=== PATIENT | male | born 1960 | race Caucasian/White ===

== ENCOUNTER 2022-06-30 15:55 | Inpatient (IN) | payer OTHER ==
[2022-06-30 16:32] VITALS: BMI 21.2
[2022-06-30] MEDS ORDERED: SODIUM CHLORIDE 1,000 ML IV STA (16:37)
[2022-06-30] MEDS ORDERED: ACETAMINOPHEN 1000 MG/100 ML BAG IVPB ONE (16:37)
[2022-06-30] MEDS ORDERED: VANCOMYCIN 1 GM in D5W (PRE-DOCKED) 1,000 MG/250 ML IVPB ONE ×2 (16:37→20:23)
[2022-06-30] MEDS ORDERED: PIPERACILLIN/TAZOB 4.5 GM 4.5 GM in DEXTROSE 5%-WATER 100 ML IVPB ONE ×2 (16:37→20:20)
[2022-06-30] MEDS ORDERED: DEXAMETHASONE SOD PHOSPHATE 4 MG/1 ML VIAL IVPUSH ONE (16:37)
[2022-06-30] MEDS ORDERED: DEXAMETHASONE SOD PHOSPHATE 10 MG/1 ML VIAL ONE (17:03)
[2022-06-30 17:12] LABS: VENOUS BASE EXCESS 5.6 mmol/L (-2-2); VENOUS O2 SATURATION 84.7 % (70-80); VENOUS PCO2 45.6 mmHg (38-52); VENOUS PH 7.444 (7.310-7.410)
[2022-06-30] MEDS ORDERED: REMDESIVIR 200 MG in SODIUM CHLORIDE 250 ML IVPB ONE (17:22)
[2022-06-30 17:27] LABS: BASO % 0.5 % (0-2.0); EOS % 0.3 % (0-4.5); HEMATOCRIT 39.9 % (35.4-49); HEMOGLOBIN 13.1 GM/dL (11.7-16.9); INR 1.03 (0.83-1.09); LYMPH % 16.3 % (8-40); MCH 29.9 pg (25.7-33.7); MCHC 32.8 g/dl (32.0-35.9); MEAN PLT VOLUME 8.5 fl (7.5-11.1); MONO % 13.8 % (3.8-10.2); NEUT % 69.1 % (42.8-82.8); PLATELET COUNT 281 10^3/uL (134-434); PROTHROMBIN TIME (PATIENT) 11.9 SEC (9.7-13.0); RBC 4.39 M/mm3 (4.00-5.60); RDW 15.5 % (11.9-15.9); WHITE BLOOD COUNT 8.7 K/mm3 (4.0-10.0)
[2022-06-30 17:30] LABS: ACTIVATED PTT 39.3 SECONDS (25.2-36.5)
[2022-06-30 17:39] LABS: BLOOD UREA NITROGEN 18.8 mg/dL (7-18)
[2022-06-30 17:42] LABS: CREATININE 0.6 mg/dL (0.55-1.3)
[2022-06-30 17:44] LABS: BILIRUBIN,TOTAL 0.3 mg/dL (0.2-1)
[2022-06-30 20:15] LABS: LACTIC ACID 2.7 mmol/L (0.4-2.0)
[2022-06-30] MEDS ORDERED: ACETAMINOPHEN 650 MG/20.3 ML ORAL SOLUTION (CUPS) GT PRN (20:24)
[2022-06-30] MEDS ORDERED: BISACODYL 10 MG SUPP.RECT PR PRN (20:27)
[2022-06-30] MEDS ORDERED: PIPERACILLIN/TAZOB 4.5 GM 4.5 GM/100 ML BAG IVPB ONE (20:44)
[2022-06-30] MEDS ORDERED: VANCOMYCIN/WATER FOR INJ (PEG) 1,000 MG/200 ML BAG IVPB ONE (20:45)
[2022-06-30] MEDS ORDERED: SCOPOLAMINE HYDROBROMIDE 1 PATCH PATCH.TD72 TD SCH (20:45)
[2022-06-30] MEDS ORDERED: SODIUM CHLORIDE 500 ML IV STA (21:28)
[2022-06-30] MEDS ORDERED: SODIUM CHLORIDE 1,000 ML IV SCH (21:30)
[2022-07-01] MEDS: VALPROATE SODIUM 250 MG/5 ML UNIT DOSE CUP GT SCH ×4 (00:03→21:34)
[2022-07-01] MEDS: levETIRAcetam 500 MG/5 ML ORAL SOLUTION (UNIT-DOSE CUPS) GT SCH ×3 (00:03→21:34)
[2022-07-01] MEDS ORDERED: VANCOMYCIN/WATER FOR INJ (PEG) 1,000 MG/200 ML BAG IVPB ONE (03:00)
[2022-07-01] MEDS: LEVOTHYROXINE NA 100 MCG TABLET (FP) GT SCH (06:01)
[2022-07-01] MEDS: ACETYLCYSTEINE 20% 200MG/ML 4 ML VIAL *FOR ORAL / INH USE ONLY IH SCH ×2 (07:40→20:12)
[2022-07-01 09:06] LABS: BASO % 0.2 % (0-2.0); HEMATOCRIT 34.9 % (35.4-49); HEMOGLOBIN 11.3 GM/dL (11.7-16.9); LYMPH % 18.7 % (8-40); MCHC 32.5 g/dl (32.0-35.9); MEAN CELL VOLUME 92.4 fl (80-96); MEAN PLT VOLUME 8.3 fl (7.5-11.1); MONO % 14.8 % (3.8-10.2); NEUT % 66.3 % (42.8-82.8); PLATELET COUNT 229 10^3/uL (134-434); RBC 3.77 M/mm3 (4.00-5.60); RDW 15.7 % (11.9-15.9); WHITE BLOOD COUNT 9.1 K/mm3 (4.0-10.0)
[2022-07-01 09:31] LABS: ALBUMIN 2.4 g/dl (3.4-5.0); BLOOD UREA NITROGEN 18.6 mg/dL (7-18); CALCIUM 8.9 mg/dL (8.5-10.1); MAGNESIUM 2.1 mg/dL (1.8-2.4)
[2022-07-01 09:34] LABS: CREATININE 0.5 mg/dL (0.55-1.3); PHOSPHOROUS 3.5 mg/dL (2.5-4.9)
[2022-07-01 09:36] LABS: BILIRUBIN,TOTAL 0.2 mg/dL (0.2-1); TOT PROT 6.4 g/dl (6.4-8.2)
[2022-07-01] MEDS: clonazePAM 0.5 MG TABLET GT SCH (10:14)
[2022-07-01] MEDS: FINASTERIDE 5 MG TABLET (FP) GT SCH (10:14)
[2022-07-01] MEDS: PANTOPRAZOLE SODIUM 40 MG VIAL IVPUSH SCH (10:15)
[2022-07-01] MEDS: ENOXAPARIN NA (PORCINE) 40 MG/0.4 ML DISP.SYRIN SQ SCH (10:15)
[2022-07-01] MEDS ORDERED: PIPERACILLIN/TAZOB 3.375 GM 3.375 GM in DEXTROSE 5%-WATER - 50 ML IVPB SCH (12:15)
[2022-07-01] MEDS: DEXAMETHASONE SOD PHOSPHATE 10 MG/1 ML VIAL IVPUSH SCH (12:21)
[2022-07-01] MEDS: LACTOBACILLUS ACIDOPHILUS 1 TABLET GT SCH (14:11)
[2022-07-01] MEDS: DOXAZOSIN MESYLATE 1 MG TABLET GT SCH (16:48)
[2022-07-01] MEDS: SCOPOLAMINE HYDROBROMIDE 1 PATCH PATCH.TD72 TD SCH (16:48)
[2022-07-01] MEDS: REMDESIVIR 100 MG in SODIUM CHLORIDE 250 ML IVPB SCH (17:16)
[2022-07-01] MEDS: PIPERACILLIN/TAZOB 3.375 GM 3.375 GM in DEXTROSE 5%-WATER - 50 ML IVPB SCH (17:16)
[2022-07-01] MEDS: SENNOSIDES 8.8 MG/5 ML BULK BOTTLE GT SCH (21:34)
[2022-07-02] MEDS: PIPERACILLIN/TAZOB 3.375 GM 3.375 GM in DEXTROSE 5%-WATER - 50 ML IVPB SCH ×3 (01:44→17:25)
[2022-07-02] MEDS: VALPROATE SODIUM 250 MG/5 ML UNIT DOSE CUP GT SCH ×3 (06:05→21:45)
[2022-07-02] MEDS: LEVOTHYROXINE NA 100 MCG TABLET (FP) GT SCH (06:05)
[2022-07-02] MEDS: ACETYLCYSTEINE 20% 200MG/ML 4 ML VIAL *FOR ORAL / INH USE ONLY IH SCH (08:00)
[2022-07-02] MEDS: FINASTERIDE 5 MG TABLET (FP) GT SCH (09:39)
[2022-07-02] MEDS: LACTOBACILLUS ACIDOPHILUS 1 TABLET GT SCH (09:39)
[2022-07-02] MEDS: clonazePAM 0.5 MG TABLET GT SCH (09:39)
[2022-07-02] MEDS: ENOXAPARIN NA (PORCINE) 40 MG/0.4 ML DISP.SYRIN SQ SCH (09:40)
[2022-07-02] MEDS: PANTOPRAZOLE SODIUM 40 MG VIAL IVPUSH SCH (09:40)
[2022-07-02] MEDS: DEXAMETHASONE SOD PHOSPHATE 10 MG/1 ML VIAL IVPUSH SCH (09:41)
[2022-07-02] MEDS: DOXAZOSIN MESYLATE 1 MG TABLET GT SCH (09:41)
[2022-07-02] MEDS: levETIRAcetam 500 MG/5 ML ORAL SOLUTION (UNIT-DOSE CUPS) GT SCH ×2 (11:48→21:46)
[2022-07-02] MEDS: REMDESIVIR 100 MG in SODIUM CHLORIDE 250 ML IVPB SCH (17:25)
[2022-07-02 18:54] VITALS: RESP 18
[2022-07-02] MEDS: SENNOSIDES 8.8 MG/5 ML BULK BOTTLE GT SCH (21:46)
[2022-07-03] MEDS: PIPERACILLIN/TAZOB 3.375 GM 3.375 GM in DEXTROSE 5%-WATER - 50 ML IVPB SCH ×3 (02:43→17:42)
[2022-07-03] MEDS: VALPROATE SODIUM 250 MG/5 ML UNIT DOSE CUP GT SCH ×3 (06:17→21:44)
[2022-07-03] MEDS: LEVOTHYROXINE NA 100 MCG TABLET (FP) GT SCH (06:17)
[2022-07-03] MEDS: levETIRAcetam 500 MG/5 ML ORAL SOLUTION (UNIT-DOSE CUPS) GT SCH ×2 (10:00→21:44)
[2022-07-03] MEDS: ENOXAPARIN NA (PORCINE) 40 MG/0.4 ML DISP.SYRIN SQ SCH (10:00)
[2022-07-03] MEDS: PANTOPRAZOLE SODIUM 40 MG VIAL IVPUSH SCH (10:00)
[2022-07-03] MEDS: FINASTERIDE 5 MG TABLET (FP) GT SCH (10:00)
[2022-07-03] MEDS: clonazePAM 0.5 MG TABLET GT SCH (10:00)
[2022-07-03] MEDS: LACTOBACILLUS ACIDOPHILUS 1 TABLET GT SCH (10:00)
[2022-07-03] MEDS: DEXAMETHASONE SOD PHOSPHATE 10 MG/1 ML VIAL IVPUSH SCH (10:01)
[2022-07-03] MEDS: DOXAZOSIN MESYLATE 1 MG TABLET GT SCH (10:01)
[2022-07-03 13:13] LABS: HEMATOCRIT 35.3 % (35.4-49); HEMOGLOBIN 11.5 GM/dL (11.7-16.9); MCH 29.8 pg (25.7-33.7); MCHC 32.5 g/dl (32.0-35.9); MEAN CELL VOLUME 91.5 fl (80-96); MEAN PLT VOLUME 8.9 fl (7.5-11.1); PLATELET COUNT 261 10^3/uL (134-434); RBC 3.86 M/mm3 (4.00-5.60); RDW 15.2 % (11.9-15.9); WHITE BLOOD COUNT 6.7 K/mm3 (4.0-10.0)
[2022-07-03 13:33] LABS: BLOOD UREA NITROGEN 19.6 mg/dL (7-18); CALCIUM 7.9 mg/dL (8.5-10.1)
[2022-07-03 13:34] LABS: ALBUMIN 2.2 g/dl (3.4-5.0)
[2022-07-03 13:36] LABS: CREATININE 0.4 mg/dL (0.55-1.3)
[2022-07-03 13:38] LABS: BILIRUBIN,TOTAL 0.2 mg/dL (0.2-1); TOT PROT 6.1 g/dl (6.4-8.2)
[2022-07-03] MEDS: REMDESIVIR 100 MG in SODIUM CHLORIDE 250 ML IVPB SCH (17:42)
[2022-07-03] MEDS: SENNOSIDES 8.8 MG/5 ML BULK BOTTLE GT SCH (21:44)
[2022-07-04] MEDS: PIPERACILLIN/TAZOB 3.375 GM 3.375 GM in DEXTROSE 5%-WATER - 50 ML IVPB SCH ×3 (02:41→17:16)
[2022-07-04] MEDS: LEVOTHYROXINE NA 100 MCG TABLET (FP) GT SCH (06:00)
[2022-07-04] MEDS: VALPROATE SODIUM 250 MG/5 ML UNIT DOSE CUP GT SCH ×3 (06:01→21:17)
[2022-07-04] MEDS: clonazePAM 0.5 MG TABLET GT SCH (11:24)
[2022-07-04] MEDS: FINASTERIDE 5 MG TABLET (FP) GT SCH (11:24)
[2022-07-04] MEDS: PANTOPRAZOLE SODIUM 40 MG VIAL IVPUSH SCH (11:24)
[2022-07-04] MEDS: LACTOBACILLUS ACIDOPHILUS 1 TABLET GT SCH (11:24)
[2022-07-04] MEDS: ENOXAPARIN NA (PORCINE) 40 MG/0.4 ML DISP.SYRIN SQ SCH (11:24)
[2022-07-04] MEDS: DEXAMETHASONE SOD PHOSPHATE 10 MG/1 ML VIAL IVPUSH SCH (11:24)
[2022-07-04] MEDS: SCOPOLAMINE HYDROBROMIDE 1 PATCH PATCH.TD72 TD SCH (11:26)
[2022-07-04] MEDS: DOXAZOSIN MESYLATE 1 MG TABLET GT SCH (11:27)
[2022-07-04 11:41] LABS: HEMATOCRIT 38.1 % (35.4-49); HEMOGLOBIN 12.3 GM/dL (11.7-16.9); MCH 29.4 pg (25.7-33.7); MCHC 32.2 g/dl (32.0-35.9); MEAN CELL VOLUME 91.3 fl (80-96); MEAN PLT VOLUME 8.5 fl (7.5-11.1); PLATELET COUNT 279 10^3/uL (134-434); RBC 4.18 M/mm3 (4.00-5.60); WHITE BLOOD COUNT 6.9 K/mm3 (4.0-10.0)
[2022-07-04 12:07] LABS: CALCIUM 8.5 mg/dL (8.5-10.1)
[2022-07-04 12:08] LABS: ALBUMIN 2.3 g/dl (3.4-5.0)
[2022-07-04 12:10] LABS: CREATININE 0.6 mg/dL (0.55-1.3)
[2022-07-04 12:11] LABS: BILIRUBIN,TOTAL 0.4 mg/dL (0.2-1); TOT PROT 6.2 g/dl (6.4-8.2)
[2022-07-04] MEDS: levETIRAcetam 500 MG/5 ML ORAL SOLUTION (UNIT-DOSE CUPS) GT SCH ×2 (13:15→21:17)
[2022-07-04] MEDS: REMDESIVIR 100 MG in SODIUM CHLORIDE 250 ML IVPB SCH (17:38)
[2022-07-04] MEDS: SENNOSIDES 8.8 MG/5 ML BULK BOTTLE GT SCH (21:17)
[2022-07-05] MEDS: PIPERACILLIN/TAZOB 3.375 GM 3.375 GM in DEXTROSE 5%-WATER - 50 ML IVPB SCH ×2 (02:05→09:51)
[2022-07-05] MEDS: LEVOTHYROXINE NA 100 MCG TABLET (FP) GT SCH (06:13)
[2022-07-05] MEDS: VALPROATE SODIUM 250 MG/5 ML UNIT DOSE CUP GT SCH ×2 (06:13→16:18)
[2022-07-05 07:14] VITALS: TEMP 97.8
[2022-07-05] MEDS: LACTOBACILLUS ACIDOPHILUS 1 TABLET GT SCH (09:52)
[2022-07-05] MEDS: FINASTERIDE 5 MG TABLET (FP) GT SCH (09:52)
[2022-07-05] MEDS: clonazePAM 0.5 MG TABLET GT SCH (09:53)
[2022-07-05] MEDS: ENOXAPARIN NA (PORCINE) 40 MG/0.4 ML DISP.SYRIN SQ SCH (09:53)
[2022-07-05] MEDS: DOXAZOSIN MESYLATE 1 MG TABLET GT SCH (09:57)
[2022-07-05] MEDS: DEXAMETHASONE SOD PHOSPHATE 10 MG/1 ML VIAL IVPUSH SCH (09:58)
[2022-07-05] MEDS: PANTOPRAZOLE SODIUM 40 MG VIAL IVPUSH SCH (10:01)
[2022-07-05 11:08] LABS: HEMATOCRIT 38.6 % (35.4-49); HEMOGLOBIN 12.4 GM/dL (11.7-16.9); MCH 29.3 pg (25.7-33.7); MCHC 32.2 g/dl (32.0-35.9); MEAN PLT VOLUME 8.4 fl (7.5-11.1); PLATELET COUNT 276 10^3/uL (134-434); RBC 4.24 M/mm3 (4.00-5.60); RDW 15.3 % (11.9-15.9); WHITE BLOOD COUNT 7.9 K/mm3 (4.0-10.0)
[2022-07-05 11:39] LABS: CALCIUM 8.6 mg/dL (8.5-10.1)
[2022-07-05 11:40] LABS: ALBUMIN 2.4 g/dl (3.4-5.0); BLOOD UREA NITROGEN 18.1 mg/dL (7-18)
[2022-07-05 11:43] LABS: CREATININE 0.4 mg/dL (0.55-1.3)
[2022-07-05 11:45] LABS: BILIRUBIN,TOTAL 0.3 mg/dL (0.2-1)
[2022-07-05 11:47] LABS: TOT PROT 6.1 g/dl (6.4-8.2)
[2022-07-05] MEDS: levETIRAcetam 500 MG/5 ML ORAL SOLUTION (UNIT-DOSE CUPS) GT SCH (12:07)
[2022-07-05 16:43] VITALS: BP 122/67
[2022-07-05 17:16] VITALS: PULSE 91
== END 2022-07-05 18:15 | DRG 871 ==
LOC: JER 15:55 → JERBED 16:38 → J5S 21:30
PROVIDERS: ADMIT Internal Medicine; ATTEND Internal Medicine
PROC: XW033E5 Introduction of Remdesivir Anti-infective into Peripheral Vein, Percutaneous Approach, New Technology Group 5 (ICD-10-PCS; principal; 2022-06-30)
DX: A41.89 Other specified sepsis (principal); J12.82 Pneumonia due to coronavirus disease 2019; U07.1 COVID-19; J96.21 Acute and chronic respiratory failure with hypoxia; J15.9 Unspecified bacterial pneumonia; J98.11 Atelectasis; E87.20 Acidosis, unspecified; E03.9 Hypothyroidism, unspecified; G40.909 Epilepsy, unspecified, not intractable, without status epilepticus; Z93.0 Tracheostomy status; G80.9 Cerebral palsy, unspecified
CPT/HCPCS: 0241U-QW; 36415; 71045-TC-FY; 80053; 82550; 82553; 82803; 83605; 83735; 84100; 84484; 85025; 85027; 85610; 85730; 86140; 86850; 86900; 86901; 87040; 87070; 87186; 87205; 93005; 93010; 99285-25; C9399; J1100

== ENCOUNTER 2022-09-25 06:00 | Emergency (ER) | payer OTHER ==
[2022-09-25 06:04] VITALS: BP 147/90; TEMP 97.1; BMI 21.1
[2022-09-25 07:11] VITALS: PULSE 108; RESP 20
== END 2022-09-25 07:30 | disposition short-term general hospital (02) ==
LOC: JER 06:00
DX: J95.09 Other tracheostomy complication (principal); Z20.822 Contact with and (suspected) exposure to COVID-19
CPT/HCPCS: 0241U-QW; 99285-25

== ENCOUNTER 2022-09-29 09:33 | Inpatient (IN) | payer OTHER ==
[2022-09-29] MEDS ORDERED: RAPID SEQUENCE INTUBATION KIT NR ONE (09:57)
[2022-09-29] MEDS ORDERED: LORazepam 2 MG/ML SDV VIAL IVPUSH ONE (10:00)
[2022-09-29] MEDS ORDERED: ROCURONIUM BROMIDE 50 MG/5 ML SYRINGE ONE (10:02)
[2022-09-29] MEDS ORDERED: MIDAZOLAM IN 0.9 % SOD.CHLORID 1 MG/1 ML PLAST..BAG ONE (10:12)
[2022-09-29] MEDS ORDERED: ALBUTEROL SO4 2.5/IPRATROPIUM 0.5 INH SOL 3 ML VIAL.NEB. NEB ONE (10:27)
[2022-09-29] MEDS ORDERED: MIDAZOLAM 100 MG in SODIUM CHLORIDE 100 ML IVPB SCH (10:30)
[2022-09-29] MEDS ORDERED: levETIRAcetam 500 MG/5 ML INJECTION VIAL IVPB ONE ×2 (10:42→10:51)
[2022-09-29] MEDS ORDERED: FENTANYL NS IVPB 500 MCG/100 ML BAG IVPB ONE (10:46)
[2022-09-29 10:51] LABS: BASO % 0.5 % (0-2.0); EOS % 0.4 % (0-4.5); HEMATOCRIT 43.1 % (35.4-49); HEMOGLOBIN 14.5 GM/dL (11.7-16.9); MCH 31.2 pg (25.7-33.7); MCHC 33.8 g/dl (32.0-35.9); MEAN CELL VOLUME 92.4 fl (80-96); MEAN PLT VOLUME 8.4 fl (7.5-11.1); MONO % 6.4 % (3.8-10.2); NEUT % 83.7 % (42.8-82.8); PLATELET COUNT 399 10^3/uL (134-434); RBC 4.66 M/mm3 (4.00-5.60); RDW 14.8 % (11.9-15.9); WHITE BLOOD COUNT 13.2 K/mm3 (4.0-10.0)
[2022-09-29] MEDS: FENTANYL IVPB 500 MCG/100 ML BAG IVPB SCH ×2 (10:51→20:11)
[2022-09-29 10:54] LABS: VENOUS BASE EXCESS -1.2 mmol/L (-2-2); VENOUS O2 SATURATION 92.8 % (70-80); VENOUS PCO2 64.2 mmHg (38-52); VENOUS PH 7.253 (7.310-7.410)
[2022-09-29 11:02] LABS: EPI CELLS 4 /uL (0-25.1); HYALINE CASTS 0 /uL (0-3.1); URINE APPEARANCE CLEAR; URINE BACTERIA 3 /uL (0-1359); URINE BILIRUBIN NEGATIVE (NEGATIVE); URINE COLOR YELLOW; URINE GLUCOSE (UA) NEGATIVE (NEGATIVE); URINE KETONE NEGATIVE (NEGATIVE); URINE LEUK ESTERASE TRACE (NEGATIVE); URINE NITRITE NEGATIVE (NEGATIVE); URINE PROTEIN NEGATIVE (NEGATIVE); URINE RBC 3 /uL (0-23.9); URINE UROBILINOGEN 0.2 mg/dL (0.2-1.0); URINE WBC 82 /uL (0-25.8)
[2022-09-29] MEDS ORDERED: MIDAZOLAM 100 MG/100 ML MG IVPB SCH (11:09)
[2022-09-29] MEDS ORDERED: MIDAZOLAM IN 0.9 % SOD.CHLORID 100 MG/100 ML PLAST..BAG IVPB SCH ×2 (11:12→12:08)
[2022-09-29 11:15] LABS: ALBUMIN 3.2 g/dl (3.4-5.0); BLOOD UREA NITROGEN 22.7 mg/dL (7-18); CALCIUM 8.9 mg/dL (8.5-10.1); MAGNESIUM 2.1 mg/dL (1.8-2.4)
[2022-09-29 11:18] LABS: CREATININE 0.6 mg/dL (0.55-1.3); PHOSPHOROUS 5.4 mg/dL (2.5-4.9)
[2022-09-29 11:19] LABS: BILIRUBIN,TOTAL 0.3 mg/dL (0.2-1); TOT PROT 8.2 g/dl (6.4-8.2)
[2022-09-29 11:25] LABS: LACTIC ACID 5.7 mmol/L (0.4-2.0)
[2022-09-29] MEDS ORDERED: LACTATED RINGERS SOLUTION 1000 ML INFUS.BAG IV ONE ×4 (11:27→16:12)
[2022-09-29] MEDS ORDERED: VANCOMYCIN/WATER 1,250 MG/250 ML BAG (RESTRICTED TO ID ONLY) IVPB ONE (11:28)
[2022-09-29] MEDS ORDERED: PIPERACILLIN/TAZOB 4.5 GM 4.5 GM in DEXTROSE 5%-WATER 100 ML IVPB ONE (11:28)
[2022-09-29] MEDS ORDERED: VANCOMYCIN/WATER 1250 MG 1,250 MG/250 ML BAG IVPB ONE (11:56)
[2022-09-29] MEDS ORDERED: PIPERACILLIN/TAZOB 4.5 GM 4.5 GM/100 ML BAG IVPB ONE (11:56)
[2022-09-29 12:05] LABS: ARTERIAL BLD GAS O2 SATURATION 98.4 % (95-98); ARTERIAL BLOOD GAS BASE EXCESS 1.1 mmol/L (-2-2); ARTERIAL BLOOD GAS PO2 114.3 mmHg (80-100); ARTERIAL BLOOD GAS pH 7.451 (7.350-7.450)
[2022-09-29 12:06] LABS: ALLENS TEST POSITIVE; VENT RATE 20
[2022-09-29] MEDS ORDERED: ACETAMINOPHEN 325 MG TABLET (FP) PO PRN (12:11)
[2022-09-29] MEDS ORDERED: ALBUTEROL SO4 2.5/IPRATROPIUM 0.5 INH SOL 3 ML VIAL.NEB. NEB PRN (12:20)
[2022-09-29] MEDS ORDERED: VALPROATE SODIUM 500 MG/5 ML VIAL IVPB SCH (14:00)
[2022-09-29] MEDS ORDERED: DOCUSATE NA 100 MG/10 ML UNIT-DOSE CUPS PO PRN (14:06)
[2022-09-29] MEDS: MIDAZOLAM IN 0.9 % SOD.CHLORID 100 MG/100 ML PLAST..BAG IVPB SCH (14:10)
[2022-09-29] MEDS: ENOXAPARIN NA (PORCINE) 40 MG/0.4 ML DISP.SYRIN SQ SCH (14:12)
[2022-09-29] MEDS: VALPROATE SODIUM INJECTION 500 MG in SODIUM CHLORIDE 100 ML IVPB SCH ×2 (14:31→21:53)
[2022-09-29 16:06] LABS: LACTIC ACID 5.4 mmol/L (0.4-2.0)
[2022-09-29] MEDS: MIDODRINE HCL 5 MG TABLET PO SCH (17:38)
[2022-09-29] MEDS: PIPERACILLIN/TAZOB 4.5 GM 4.5 GM in DEXTROSE 5%-WATER 100 ML IVPB SCH (17:38)
[2022-09-29] MEDS ORDERED: PIPERACILLIN/TAZOB 4.5 GM 4.5 GM in DEXTROSE 5%-WATER 100 ML IVPB SCH (18:00)
[2022-09-29] MEDS: DEXAMETHASONE SOD PHOSPHATE 10 MG/1 ML VIAL IVPUSH SCH (20:11)
[2022-09-29] MEDS ORDERED: TRIPLE LUMEN FLUSH 4 ML ML IVPUSH PRN (20:45)
[2022-09-29] MEDS: levETIRAcetam 500 MG/5 ML INJECTION VIAL IVPB SCH (21:51)
[2022-09-29] MEDS: CHLORHEXIDINE GLUCONATE 4% CLEANSER FOR DECOLONIZATION TP SCH (21:52)
[2022-09-29] MEDS: SENNOSIDES 8.6MG TABLET (FP) PO SCH (21:52)
[2022-09-29] MEDS: NOREPINEPHRINE BITARTRATE/D5W 8 MG/250 ML BAG IVPB SCH (21:54)
[2022-09-29] MEDS: MUPIROCIN 2% TOPICAL OINTMENT FOR DECOLONIZATION NS SCH (21:54)
[2022-09-29 22:03] LABS: LACTIC ACID 3.1 mmol/L (0.4-2.0)
[2022-09-30] MEDS ORDERED: PIPERACILLIN/TAZOBACTAM 4.5 GM VIAL IVPB ONE (01:37)
[2022-09-30] MEDS: PIPERACILLIN/TAZOB 4.5 GM 4.5 GM in DEXTROSE 5%-WATER 100 ML IVPB SCH ×2 (01:40→09:05)
[2022-09-30 06:10] LABS: ARTERIAL BLD GAS O2 SATURATION 98.9 % (95-98); ARTERIAL BLOOD GAS BASE EXCESS 1.3 mmol/L (-2-2); ARTERIAL BLOOD GAS PO2 136.6 mmHg (80-100); ARTERIAL BLOOD GAS pH 7.494 (7.350-7.450)
[2022-09-30 06:17] LABS: ALLENS TEST POSITIVE
[2022-09-30 06:18] LABS: VENT MODE A/C; VENT RATE 18
[2022-09-30] MEDS: VALPROATE SODIUM INJECTION 500 MG in SODIUM CHLORIDE 100 ML IVPB SCH ×3 (06:54→21:09)
[2022-09-30] MEDS: FENTANYL IVPB 500 MCG/100 ML BAG IVPB SCH ×2 (06:55→16:16)
[2022-09-30 08:37] LABS: INR 1.01 (0.83-1.09); PROTHROMBIN TIME (PATIENT) 11.7 SEC (9.7-13.0)
[2022-09-30 08:44] LABS: BASO % 0.1 % (0-2.0); HEMATOCRIT 34.8 % (35.4-49); HEMOGLOBIN 12.4 GM/dL (11.7-16.9); LYMPH % 10.4 % (8-40); MCH 32.3 pg (25.7-33.7); MCHC 35.6 g/dl (32.0-35.9); MEAN CELL VOLUME 90.6 fl (80-96); MEAN PLT VOLUME 9.1 fl (7.5-11.1); MONO % 5.9 % (3.8-10.2); NEUT % 83.6 % (42.8-82.8); PLATELET COUNT 292 10^3/uL (134-434); RBC 3.85 M/mm3 (4.00-5.60); RDW 14.7 % (11.9-15.9); WHITE BLOOD COUNT 8.4 K/mm3 (4.0-10.0)
[2022-09-30 08:46] LABS: LACTIC ACID 3.2 mmol/L (0.4-2.0)
[2022-09-30 08:53] LABS: CALCIUM 8.6 mg/dL (8.5-10.1)
[2022-09-30 08:54] LABS: BLOOD UREA NITROGEN 18.7 mg/dL (7-18); MAGNESIUM 1.8 mg/dL (1.8-2.4)
[2022-09-30 08:58] LABS: CREATININE 0.6 mg/dL (0.55-1.3); PHOSPHOROUS 4.1 mg/dL (2.5-4.9)
[2022-09-30] MEDS: MIDODRINE HCL 5 MG TABLET PO SCH ×3 (09:05→18:05)
[2022-09-30] MEDS: levETIRAcetam 500 MG/5 ML INJECTION VIAL IVPB SCH ×2 (09:05→21:08)
[2022-09-30] MEDS: LEVOTHYROXINE SODIUM 100 MCG 5 ML VIAL IVPUSH SCH (09:06)
[2022-09-30] MEDS: ENOXAPARIN NA (PORCINE) 40 MG/0.4 ML DISP.SYRIN SQ SCH (09:06)
[2022-09-30] MEDS: MIDAZOLAM IN 0.9 % SOD.CHLORID 100 MG/100 ML PLAST..BAG IVPB SCH (09:25)
[2022-09-30] MEDS: MUPIROCIN 2% TOPICAL OINTMENT FOR DECOLONIZATION NS SCH ×2 (14:28→22:58)
[2022-09-30] MEDS: PIPERACILLIN/TAZOB 3.375 GM 3.375 GM in DEXTROSE 5%-WATER - 50 ML IVPB SCH (18:05)
[2022-09-30] MEDS: DEXAMETHASONE SOD PHOSPHATE 10 MG/1 ML VIAL IVPUSH SCH (18:05)
[2022-09-30] MEDS ORDERED: REMDESIVIR 200 MG in SODIUM CHLORIDE 250 ML IVPB ONE (19:30)
[2022-09-30] MEDS: SENNOSIDES 8.6MG TABLET (FP) PO SCH (21:08)
[2022-09-30] MEDS: CHLORHEXIDINE GLUCONATE 4% CLEANSER FOR DECOLONIZATION TP SCH (21:09)
[2022-09-30] MEDS: NOREPINEPHRINE BITARTRATE/D5W 8 MG/250 ML BAG IVPB SCH (21:09)
[2022-10-01] MEDS: PIPERACILLIN/TAZOB 3.375 GM 3.375 GM in DEXTROSE 5%-WATER - 50 ML IVPB SCH ×3 (01:57→17:26)
[2022-10-01] MEDS: FENTANYL IVPB 500 MCG/100 ML BAG IVPB SCH (04:03)
[2022-10-01] MEDS: VALPROATE SODIUM INJECTION 500 MG in SODIUM CHLORIDE 100 ML IVPB SCH ×3 (05:23→21:38)
[2022-10-01 06:39] LABS: ARTERIAL BLD GAS O2 SATURATION 94.4 % (95-98); ARTERIAL BLOOD GAS BASE EXCESS 2.8 mmol/L (-2-2); ARTERIAL BLOOD GAS PO2 64.9 mmHg (80-100); ARTERIAL BLOOD GAS pH 7.496 (7.350-7.450)
[2022-10-01 07:00] LABS: VENT MODE V-A/C; VENT RATE 18
[2022-10-01 07:48] LABS: HEMATOCRIT 34.9 % (35.4-49); HEMOGLOBIN 12.3 GM/dL (11.7-16.9); MCH 32.1 pg (25.7-33.7); MCHC 35.2 g/dl (32.0-35.9); MEAN CELL VOLUME 91.2 fl (80-96); MEAN PLT VOLUME 8.6 fl (7.5-11.1); PLATELET COUNT 279 10^3/uL (134-434); RBC 3.83 M/mm3 (4.00-5.60); RDW 14.3 % (11.9-15.9); WHITE BLOOD COUNT 6.4 K/mm3 (4.0-10.0)
[2022-10-01 08:06] LABS: BLOOD UREA NITROGEN 19.4 mg/dL (7-18); CALCIUM 8.5 mg/dL (8.5-10.1); MAGNESIUM 1.9 mg/dL (1.8-2.4)
[2022-10-01 08:09] LABS: CREATININE 0.6 mg/dL (0.55-1.3); PHOSPHOROUS 3.2 mg/dL (2.5-4.9)
[2022-10-01 08:14] LABS: INR 0.97 (0.83-1.09); PROTHROMBIN TIME (PATIENT) 11.2 SEC (9.7-13.0)
[2022-10-01 08:16] LABS: ACTIVATED PTT 32.8 SECONDS (25.2-36.5)
[2022-10-01] MEDS: MIDODRINE HCL 5 MG TABLET PO SCH ×3 (09:34→17:26)
[2022-10-01] MEDS: LEVOTHYROXINE SODIUM 100 MCG 5 ML VIAL IVPUSH SCH (09:35)
[2022-10-01] MEDS: levETIRAcetam 500 MG/5 ML INJECTION VIAL IVPB SCH ×2 (09:35→21:40)
[2022-10-01] MEDS: REMDESIVIR 100 MG in SODIUM CHLORIDE 250 ML IVPB SCH (09:36)
[2022-10-01] MEDS: MUPIROCIN 2% TOPICAL OINTMENT FOR DECOLONIZATION NS SCH ×2 (09:36→21:41)
[2022-10-01] MEDS: ENOXAPARIN NA (PORCINE) 40 MG/0.4 ML DISP.SYRIN SQ SCH (09:37)
[2022-10-01] MEDS: DEXAMETHASONE SOD PHOSPHATE 10 MG/1 ML VIAL IVPUSH SCH (17:26)
[2022-10-01] MEDS: NOREPINEPHRINE BITARTRATE/D5W 8 MG/250 ML BAG IVPB SCH (21:40)
[2022-10-01] MEDS: CHLORHEXIDINE GLUCONATE 4% CLEANSER FOR DECOLONIZATION TP SCH (21:40)
[2022-10-01] MEDS: SENNOSIDES 8.6MG TABLET (FP) PO SCH (21:40)
[2022-10-02] MEDS: PIPERACILLIN/TAZOB 3.375 GM 3.375 GM in DEXTROSE 5%-WATER - 50 ML IVPB SCH ×3 (01:54→17:37)
[2022-10-02] MEDS: VALPROATE SODIUM INJECTION 500 MG in SODIUM CHLORIDE 100 ML IVPB SCH ×2 (06:18→13:53)
[2022-10-02 07:12] LABS: BASO % 0.1 % (0-2.0); HEMOGLOBIN 11.8 GM/dL (11.7-16.9); LYMPH % 9.8 % (8-40); MCH 31.8 pg (25.7-33.7); MCHC 34.6 g/dl (32.0-35.9); MEAN CELL VOLUME 92.1 fl (80-96); MEAN PLT VOLUME 8.4 fl (7.5-11.1); MONO % 9.2 % (3.8-10.2); NEUT % 80.9 % (42.8-82.8); PLATELET COUNT 270 10^3/uL (134-434); RDW 14.6 % (11.9-15.9)
[2022-10-02 07:41] LABS: CALCIUM 8.5 mg/dL (8.5-10.1)
[2022-10-02 07:43] LABS: CREATININE 0.5 mg/dL (0.55-1.3)
[2022-10-02 07:44] LABS: BILIRUBIN,TOTAL 0.2 mg/dL (0.2-1)
[2022-10-02 07:47] LABS: ALBUMIN 2.4 g/dl (3.4-5.0); TOT PROT 6.1 g/dl (6.4-8.2)
[2022-10-02] MEDS: MUPIROCIN 2% TOPICAL OINTMENT FOR DECOLONIZATION NS SCH (09:41)
[2022-10-02] MEDS: levETIRAcetam 500 MG/5 ML INJECTION VIAL IVPB SCH ×2 (09:41→23:29)
[2022-10-02] MEDS: ENOXAPARIN NA (PORCINE) 40 MG/0.4 ML DISP.SYRIN SQ SCH (09:41)
[2022-10-02] MEDS: DEXAMETHASONE SOD PHOSPHATE 10 MG/1 ML VIAL IVPUSH SCH (09:41)
[2022-10-02] MEDS: LEVOTHYROXINE SODIUM 100 MCG 5 ML VIAL IVPUSH SCH (09:42)
[2022-10-02] MEDS: REMDESIVIR 100 MG in SODIUM CHLORIDE 250 ML IVPB SCH (09:42)
[2022-10-02] MEDS: MIDODRINE HCL 5 MG TABLET PO SCH ×3 (09:42→17:37)
[2022-10-02] MEDS: FENTANYL IVPB 500 MCG/100 ML BAG IVPB SCH (09:43)
[2022-10-02] MEDS ORDERED: SODIUM CHLORIDE 0.9% 500 ML INFUS.BAG IV ONE (14:28)
[2022-10-02] MEDS ORDERED: DEXTROSE 50%-WATER - 25 GM/50 ML VIAL IVPUSH PRN (19:28)
[2022-10-02] MEDS: MELATONIN 1 MG TABLET PO SCH (23:29)
[2022-10-02] MEDS: SENNOSIDES 8.6MG TABLET (FP) PO SCH (23:29)
[2022-10-03] MEDS: MUPIROCIN 2% TOPICAL OINTMENT FOR DECOLONIZATION NS SCH (00:32)
[2022-10-03] MEDS: CHLORHEXIDINE GLUCONATE 4% CLEANSER FOR DECOLONIZATION TP SCH (00:32)
[2022-10-03] MEDS: VALPROATE SODIUM INJECTION 500 MG in SODIUM CHLORIDE 100 ML IVPB SCH ×5 (00:52→22:02)
[2022-10-03] MEDS: PIPERACILLIN/TAZOB 3.375 GM 3.375 GM in DEXTROSE 5%-WATER - 50 ML IVPB SCH ×3 (02:26→17:08)
[2022-10-03 07:53] LABS: BASO % 0.2 % (0-2.0); EOS % 0.1 % (0-4.5); HEMATOCRIT 33.5 % (35.4-49); HEMOGLOBIN 11.6 GM/dL (11.7-16.9); LYMPH % 37.7 % (8-40); MCHC 34.7 g/dl (32.0-35.9); MEAN CELL VOLUME 92.2 fl (80-96); MEAN PLT VOLUME 8.4 fl (7.5-11.1); MONO % 10.9 % (3.8-10.2); NEUT % 51.1 % (42.8-82.8); PLATELET COUNT 278 10^3/uL (134-434); RBC 3.63 M/mm3 (4.00-5.60); RDW 14.7 % (11.9-15.9); WHITE BLOOD COUNT 7.7 K/mm3 (4.0-10.0)
[2022-10-03 08:17] LABS: BLOOD UREA NITROGEN 21.4 mg/dL (7-18); CALCIUM 8.4 mg/dL (8.5-10.1)
[2022-10-03 08:18] LABS: ALBUMIN 2.5 g/dl (3.4-5.0); MAGNESIUM 2.1 mg/dL (1.8-2.4)
[2022-10-03 08:21] LABS: CREATININE 0.5 mg/dL (0.55-1.3); PHOSPHOROUS 2.9 mg/dL (2.5-4.9)
[2022-10-03 08:22] LABS: BILIRUBIN,TOTAL 0.2 mg/dL (0.2-1)
[2022-10-03] MEDS: MIDODRINE HCL 5 MG TABLET PO SCH ×3 (10:08→17:08)
[2022-10-03] MEDS: ENOXAPARIN NA (PORCINE) 40 MG/0.4 ML DISP.SYRIN SQ SCH (10:08)
[2022-10-03] MEDS: levETIRAcetam 500 MG/5 ML INJECTION VIAL IVPB SCH ×2 (10:09→21:59)
[2022-10-03] MEDS: LEVOTHYROXINE SODIUM 100 MCG 5 ML VIAL IVPUSH SCH (10:09)
[2022-10-03 12:39] VITALS: BMI 22.9
[2022-10-03] MEDS: ALBUTEROL SO4 2.5/IPRATROPIUM 0.5 INH SOL 3 ML VIAL.NEB. NEB SCH ×2 (15:18→20:00)
[2022-10-03] MEDS ORDERED: ALBUTEROL SO4 2.5/IPRATROPIUM 0.5 INH SOL 3 ML VIAL.NEB. NEB PRN (20:02)
[2022-10-03] MEDS ORDERED: ACETAMINOPHEN 325 MG TABLET (FP) PO PRN (20:02)
[2022-10-03] MEDS ORDERED: DOCUSATE NA 100 MG/10 ML UNIT-DOSE CUPS PO PRN (20:02)
[2022-10-03] MEDS: MELATONIN 1 MG TABLET PO SCH (22:00)
[2022-10-03] MEDS: SENNOSIDES 8.6MG TABLET (FP) PO SCH (22:01)
[2022-10-04] MEDS: PIPERACILLIN/TAZOB 3.375 GM 3.375 GM in DEXTROSE 5%-WATER - 50 ML IVPB SCH ×3 (01:15→17:44)
[2022-10-04] MEDS: VALPROATE SODIUM INJECTION 500 MG in SODIUM CHLORIDE 100 ML IVPB SCH ×5 (06:06→22:52)
[2022-10-04] MEDS: LEVOTHYROXINE NA 75 MCG TABLET (FP) PO SCH (06:06)
[2022-10-04] MEDS: ALBUTEROL SO4 2.5/IPRATROPIUM 0.5 INH SOL 3 ML VIAL.NEB. NEB SCH ×4 (07:43→20:05)
[2022-10-04 08:52] LABS: BASO % 0.4 % (0-2.0); EOS % 0.5 % (0-4.5); HEMATOCRIT 39.9 % (35.4-49); HEMOGLOBIN 14.1 GM/dL (11.7-16.9); LYMPH % 25.4 % (8-40); MCH 32.4 pg (25.7-33.7); MCHC 35.4 g/dl (32.0-35.9); MEAN CELL VOLUME 91.5 fl (80-96); MEAN PLT VOLUME 8.6 fl (7.5-11.1); MONO % 10.8 % (3.8-10.2); NEUT % 62.9 % (42.8-82.8); PLATELET COUNT 306 10^3/uL (134-434); RBC 4.36 M/mm3 (4.00-5.60); WHITE BLOOD COUNT 10.1 K/mm3 (4.0-10.0)
[2022-10-04 09:22] LABS: ALBUMIN 2.9 g/dl (3.4-5.0); BLOOD UREA NITROGEN 13.9 mg/dL (7-18); MAGNESIUM 2.1 mg/dL (1.8-2.4)
[2022-10-04 09:25] LABS: BILIRUBIN,TOTAL 0.2 mg/dL (0.2-1); CREATININE 0.5 mg/dL (0.55-1.3); PHOSPHOROUS 3.2 mg/dL (2.5-4.9)
[2022-10-04 09:26] LABS: TOT PROT 7.1 g/dl (6.4-8.2)
[2022-10-04] MEDS: levETIRAcetam 500 MG/5 ML INJECTION VIAL IVPB SCH ×2 (11:26→22:51)
[2022-10-04] MEDS: ENOXAPARIN NA (PORCINE) 40 MG/0.4 ML DISP.SYRIN SQ SCH (11:26)
[2022-10-04] MEDS: MIDODRINE HCL 5 MG TABLET PO SCH ×3 (11:27→17:45)
[2022-10-04] MEDS: SENNOSIDES 8.6MG TABLET (FP) PO SCH (22:51)
[2022-10-04] MEDS: MELATONIN 1 MG TABLET PO SCH (22:51)
[2022-10-05] MEDS: PIPERACILLIN/TAZOB 3.375 GM 3.375 GM in DEXTROSE 5%-WATER - 50 ML IVPB SCH ×3 (02:17→17:12)
[2022-10-05] MEDS: VALPROATE SODIUM INJECTION 500 MG in SODIUM CHLORIDE 100 ML IVPB SCH ×3 (06:41→21:41)
[2022-10-05] MEDS: LEVOTHYROXINE NA 75 MCG TABLET (FP) PO SCH (06:41)
[2022-10-05] MEDS: ALBUTEROL SO4 2.5/IPRATROPIUM 0.5 INH SOL 3 ML VIAL.NEB. NEB SCH ×4 (07:58→20:00)
[2022-10-05] MEDS: ENOXAPARIN NA (PORCINE) 40 MG/0.4 ML DISP.SYRIN SQ SCH (10:09)
[2022-10-05] MEDS: levETIRAcetam 500 MG/5 ML INJECTION VIAL IVPB SCH ×2 (10:10→21:41)
[2022-10-05] MEDS: MIDODRINE HCL 5 MG TABLET PO SCH ×3 (10:12→17:13)
[2022-10-05] MEDS: SENNOSIDES 8.6MG TABLET (FP) PO SCH (21:40)
[2022-10-05] MEDS: MELATONIN 1 MG TABLET PO SCH (21:40)
[2022-10-06] MEDS: LEVOTHYROXINE NA 75 MCG TABLET (FP) PO SCH (06:58)
[2022-10-06] MEDS: VALPROATE SODIUM INJECTION 500 MG in SODIUM CHLORIDE 100 ML IVPB SCH ×3 (06:59→23:09)
[2022-10-06] MEDS: ALBUTEROL SO4 2.5/IPRATROPIUM 0.5 INH SOL 3 ML VIAL.NEB. NEB SCH ×4 (07:30→21:20)
[2022-10-06] MEDS: ENOXAPARIN NA (PORCINE) 40 MG/0.4 ML DISP.SYRIN SQ SCH (09:58)
[2022-10-06] MEDS: levETIRAcetam 500 MG/5 ML INJECTION VIAL IVPB SCH ×2 (09:58→22:28)
[2022-10-06] MEDS: AMOX TR/POT CLAV 500MG/125MG TABLETS (FP) PO SCH ×2 (09:59→17:35)
[2022-10-06] MEDS: MIDODRINE HCL 5 MG TABLET PO SCH ×3 (10:00→17:35)
[2022-10-06] MEDS: SODIUM CHLORIDE 1,000 ML IV SCH (15:19)
[2022-10-06] MEDS: ACYCLOVIR INJECTION 600 MG in DEXTROSE 5%-WATER - 100 ML IVPB SCH ×2 (15:20→18:12)
[2022-10-06] MEDS: MELATONIN 1 MG TABLET PO SCH (22:29)
[2022-10-06] MEDS: SENNOSIDES 8.6MG TABLET (FP) PO SCH (22:29)
[2022-10-07] MEDS: ACYCLOVIR INJECTION 600 MG in DEXTROSE 5%-WATER - 100 ML IVPB SCH ×3 (02:19→18:26)
[2022-10-07] MEDS: VALPROATE SODIUM INJECTION 500 MG in SODIUM CHLORIDE 100 ML IVPB SCH ×3 (05:17→22:46)
[2022-10-07] MEDS: LEVOTHYROXINE NA 75 MCG TABLET (FP) PO SCH (06:04)
[2022-10-07] MEDS: ALBUTEROL SO4 2.5/IPRATROPIUM 0.5 INH SOL 3 ML VIAL.NEB. NEB SCH ×4 (07:40→21:19)
[2022-10-07] MEDS: AMOX TR/POT CLAV 500MG/125MG TABLETS (FP) PO SCH ×2 (08:20→17:24)
[2022-10-07] MEDS: MIDODRINE HCL 5 MG TABLET PO SCH ×3 (09:13→17:24)
[2022-10-07] MEDS: levETIRAcetam 500 MG/5 ML INJECTION VIAL IVPB SCH ×2 (09:44→22:46)
[2022-10-07] MEDS: ENOXAPARIN NA (PORCINE) 40 MG/0.4 ML DISP.SYRIN SQ SCH (09:44)
[2022-10-07 09:50] LABS: HEMATOCRIT 38.7 % (35.4-49); HEMOGLOBIN 13.2 GM/dL (11.7-16.9); MCH 31.5 pg (25.7-33.7); MEAN CELL VOLUME 92.6 fl (80-96); MEAN PLT VOLUME 8.1 fl (7.5-11.1); PLATELET COUNT 381 10^3/uL (134-434); RBC 4.18 M/mm3 (4.00-5.60); WHITE BLOOD COUNT 13.4 K/mm3 (4.0-10.0)
[2022-10-07 10:57] LABS: ALBUMIN 2.7 g/dl (3.4-5.0); BILIRUBIN,TOTAL 0.2 mg/dL (0.2-1); BLOOD UREA NITROGEN 15.2 mg/dL (7-18); CALCIUM 9.2 mg/dL (8.5-10.1); CREATININE 0.6 mg/dL (0.55-1.3); TOT PROT 6.6 g/dl (6.4-8.2)
[2022-10-07 11:33] LABS: ANISOCYTOSIS 0; HELMET CELLS 0; HOWELL-JOLLY BODIES 0; MACROCYTOSIS 0; OVALOCYTE 0; ROULEAU 0; SICKELED CELLS 0; TARGET CELLS 0; TEAR DROP CELLS 0; TOXIC GRANULATION 0
[2022-10-07] MEDS: SODIUM CHLORIDE 1,000 ML IV SCH (14:35)
[2022-10-07] MEDS: SENNOSIDES 8.6MG TABLET (FP) PO SCH (22:46)
[2022-10-07] MEDS: MELATONIN 1 MG TABLET PO SCH (22:46)
[2022-10-08] MEDS: ACYCLOVIR INJECTION 600 MG in DEXTROSE 5%-WATER - 100 ML IVPB SCH ×3 (02:42→18:23)
[2022-10-08] MEDS: SODIUM CHLORIDE 1,000 ML IV SCH ×2 (05:31→15:32)
[2022-10-08] MEDS: LEVOTHYROXINE NA 75 MCG TABLET (FP) PO SCH (06:41)
[2022-10-08] MEDS: VALPROATE SODIUM INJECTION 500 MG in SODIUM CHLORIDE 100 ML IVPB SCH ×2 (06:41→15:32)
[2022-10-08] MEDS: ALBUTEROL SO4 2.5/IPRATROPIUM 0.5 INH SOL 3 ML VIAL.NEB. NEB SCH ×4 (07:47→20:34)
[2022-10-08] MEDS: AMOX TR/POT CLAV 500MG/125MG TABLETS (FP) PO SCH ×2 (08:52→18:23)
[2022-10-08] MEDS: ENOXAPARIN NA (PORCINE) 40 MG/0.4 ML DISP.SYRIN SQ SCH (09:03)
[2022-10-08] MEDS: levETIRAcetam 500 MG/5 ML INJECTION VIAL IVPB SCH ×2 (09:03→22:21)
[2022-10-08] MEDS: MIDODRINE HCL 5 MG TABLET PO SCH ×3 (09:04→18:23)
[2022-10-08] MEDS: SENNOSIDES 8.6MG TABLET (FP) PO SCH (22:21)
[2022-10-08] MEDS: MELATONIN 1 MG TABLET PO SCH (22:21)
[2022-10-09] MEDS: VALPROATE SODIUM INJECTION 500 MG in SODIUM CHLORIDE 100 ML IVPB SCH ×5 (00:43→22:38)
[2022-10-09] MEDS: ACYCLOVIR INJECTION 600 MG in DEXTROSE 5%-WATER - 100 ML IVPB SCH ×2 (01:56→12:50)
[2022-10-09] MEDS: LEVOTHYROXINE NA 75 MCG TABLET (FP) PO SCH (06:54)
[2022-10-09] MEDS: AMOX TR/POT CLAV 500MG/125MG TABLETS (FP) PO SCH ×2 (08:35→18:23)
[2022-10-09] MEDS: SODIUM CHLORIDE 1,000 ML IV SCH ×2 (08:38→14:32)
[2022-10-09] MEDS: ALBUTEROL SO4 2.5/IPRATROPIUM 0.5 INH SOL 3 ML VIAL.NEB. NEB SCH ×4 (08:41→20:40)
[2022-10-09] MEDS: levETIRAcetam 500 MG/5 ML INJECTION VIAL IVPB SCH ×2 (11:11→22:38)
[2022-10-09] MEDS: ENOXAPARIN NA (PORCINE) 40 MG/0.4 ML DISP.SYRIN SQ SCH (11:12)
[2022-10-09] MEDS: MIDODRINE HCL 5 MG TABLET PO SCH ×3 (11:12→18:23)
[2022-10-09] MEDS: SENNOSIDES 8.6MG TABLET (FP) PO SCH (22:38)
[2022-10-09] MEDS: MELATONIN 1 MG TABLET PO SCH (22:38)
[2022-10-10] MEDS: LEVOTHYROXINE NA 75 MCG TABLET (FP) PO SCH (06:09)
[2022-10-10] MEDS: ALBUTEROL SO4 2.5/IPRATROPIUM 0.5 INH SOL 3 ML VIAL.NEB. NEB SCH ×4 (07:28→20:00)
[2022-10-10] MEDS: VALPROATE SODIUM INJECTION 500 MG in SODIUM CHLORIDE 100 ML IVPB SCH ×3 (09:02→23:48)
[2022-10-10 09:11] LABS: BASO % 0.8 % (0-2.0); EOS % 2.7 % (0-4.5); HEMATOCRIT 37.6 % (35.4-49); HEMOGLOBIN 12.8 GM/dL (11.7-16.9); MCH 31.6 pg (25.7-33.7); MEAN CELL VOLUME 93.1 fl (80-96); MEAN PLT VOLUME 8.1 fl (7.5-11.1); MONO % 11.3 % (3.8-10.2); NEUT % 55.2 % (42.8-82.8); PLATELET COUNT 349 10^3/uL (134-434); RBC 4.04 M/mm3 (4.00-5.60); RDW 14.5 % (11.9-15.9); WHITE BLOOD COUNT 9.6 K/mm3 (4.0-10.0)
[2022-10-10 09:18] LABS: CALCIUM 9.4 mg/dL (8.5-10.1)
[2022-10-10 09:22] LABS: CREATININE 0.4 mg/dL (0.55-1.3)
[2022-10-10] MEDS: levETIRAcetam 500 MG/5 ML INJECTION VIAL IVPB SCH ×2 (10:12→21:03)
[2022-10-10] MEDS: ENOXAPARIN NA (PORCINE) 40 MG/0.4 ML DISP.SYRIN SQ SCH (10:13)
[2022-10-10] MEDS: TAMSULOSIN HCL 0.4 MG CAP PO SCH (10:13)
[2022-10-10] MEDS: FINASTERIDE 5 MG TABLET (FP) PO SCH (10:13)
[2022-10-10] MEDS: MIDODRINE HCL 5 MG TABLET PO SCH ×3 (10:13→17:11)
[2022-10-10] MEDS: clonazePAM 0.5 MG TABLET GT SCH (10:13)
[2022-10-10] MEDS: AMOX TR/POT CLAV 500MG/125MG TABLETS (FP) PO SCH ×2 (10:14→17:11)
[2022-10-10] MEDS: MELATONIN 1 MG TABLET PO SCH (21:03)
[2022-10-10] MEDS: SENNOSIDES 8.6MG TABLET (FP) PO SCH (21:03)
[2022-10-11] MEDS: LEVOTHYROXINE NA 75 MCG TABLET (FP) PO SCH (06:34)
[2022-10-11] MEDS: VALPROATE SODIUM INJECTION 500 MG in SODIUM CHLORIDE 100 ML IVPB SCH ×2 (06:34→14:50)
[2022-10-11] MEDS: ALBUTEROL SO4 2.5/IPRATROPIUM 0.5 INH SOL 3 ML VIAL.NEB. NEB SCH ×4 (07:53→20:15)
[2022-10-11] MEDS: TAMSULOSIN HCL 0.4 MG CAP PO SCH (10:05)
[2022-10-11] MEDS: AMOX TR/POT CLAV 500MG/125MG TABLETS (FP) PO SCH ×2 (10:05→17:43)
[2022-10-11] MEDS: levETIRAcetam 500 MG/5 ML INJECTION VIAL IVPB SCH ×2 (10:05→21:22)
[2022-10-11] MEDS: FINASTERIDE 5 MG TABLET (FP) PO SCH (10:05)
[2022-10-11] MEDS: MIDODRINE HCL 5 MG TABLET PO SCH ×3 (10:06→17:43)
[2022-10-11] MEDS: clonazePAM 0.5 MG TABLET GT SCH (10:06)
[2022-10-11] MEDS: MELATONIN 1 MG TABLET PO SCH (21:22)
[2022-10-11] MEDS: SENNOSIDES 8.6MG TABLET (FP) PO SCH (21:22)
[2022-10-12] MEDS: VALPROATE SODIUM INJECTION 500 MG in SODIUM CHLORIDE 100 ML IVPB SCH ×4 (00:13→23:55)
[2022-10-12] MEDS: LEVOTHYROXINE NA 75 MCG TABLET (FP) PO SCH (06:34)
[2022-10-12] MEDS: ALBUTEROL SO4 2.5/IPRATROPIUM 0.5 INH SOL 3 ML VIAL.NEB. NEB SCH ×4 (09:40→20:03)
[2022-10-12] MEDS: TAMSULOSIN HCL 0.4 MG CAP PO SCH (10:45)
[2022-10-12] MEDS: levETIRAcetam 500 MG/5 ML INJECTION VIAL IVPB SCH ×2 (10:45→23:55)
[2022-10-12] MEDS: clonazePAM 0.5 MG TABLET GT SCH (10:45)
[2022-10-12] MEDS: MIDODRINE HCL 5 MG TABLET PO SCH ×3 (10:46→17:02)
[2022-10-12] MEDS: FINASTERIDE 5 MG TABLET (FP) PO SCH (10:46)
[2022-10-12] MEDS: AMOX TR/POT CLAV 500MG/125MG TABLETS (FP) PO SCH ×2 (10:46→17:02)
[2022-10-12 12:03] LABS: BASO % 0.7 % (0-2.0); EOS % 1.1 % (0-4.5); HEMATOCRIT 39.1 % (35.4-49); HEMOGLOBIN 13.3 GM/dL (11.7-16.9); LYMPH % 27.9 % (8-40); MCH 31.9 pg (25.7-33.7); MCHC 34.1 g/dl (32.0-35.9); MEAN CELL VOLUME 93.6 fl (80-96); MEAN PLT VOLUME 7.8 fl (7.5-11.1); MONO % 8.7 % (3.8-10.2); NEUT % 61.6 % (42.8-82.8); PLATELET COUNT 387 10^3/uL (134-434); RBC 4.18 M/mm3 (4.00-5.60); RDW 14.9 % (11.9-15.9); WHITE BLOOD COUNT 10.8 K/mm3 (4.0-10.0)
[2022-10-12 12:27] LABS: ALBUMIN 2.8 g/dl (3.4-5.0); BLOOD UREA NITROGEN 19.6 mg/dL (7-18); CALCIUM 9.2 mg/dL (8.5-10.1)
[2022-10-12 12:30] LABS: CREATININE 0.5 mg/dL (0.55-1.3); PHOSPHOROUS 3.4 mg/dL (2.5-4.9)
[2022-10-12 12:32] LABS: BILIRUBIN,TOTAL 0.2 mg/dL (0.2-1); TOT PROT 6.9 g/dl (6.4-8.2)
[2022-10-12] MEDS: MELATONIN 1 MG TABLET PO SCH (23:55)
[2022-10-12] MEDS: SENNOSIDES 8.6MG TABLET (FP) PO SCH (23:55)
[2022-10-13] MEDS: LEVOTHYROXINE NA 75 MCG TABLET (FP) PO SCH (06:31)
[2022-10-13] MEDS: ALBUTEROL SO4 2.5/IPRATROPIUM 0.5 INH SOL 3 ML VIAL.NEB. NEB SCH (08:05)
[2022-10-13] MEDS: VALPROATE SODIUM INJECTION 500 MG in SODIUM CHLORIDE 100 ML IVPB SCH ×2 (10:20→14:49)
[2022-10-13] MEDS: FINASTERIDE 5 MG TABLET (FP) PO SCH (10:22)
[2022-10-13] MEDS: MIDODRINE HCL 5 MG TABLET PO SCH ×3 (10:22→18:17)
[2022-10-13] MEDS: clonazePAM 0.5 MG TABLET GT SCH (10:22)
[2022-10-13] MEDS: TAMSULOSIN HCL 0.4 MG CAP PO SCH (10:22)
[2022-10-13] MEDS: levETIRAcetam 500 MG/5 ML INJECTION VIAL IVPB SCH ×2 (10:22→22:55)
[2022-10-13] MEDS: MELATONIN 1 MG TABLET PO SCH (22:55)
[2022-10-13] MEDS: SENNOSIDES 8.6MG TABLET (FP) PO SCH (22:55)
[2022-10-14] MEDS: VALPROATE SODIUM INJECTION 500 MG in SODIUM CHLORIDE 100 ML IVPB SCH ×4 (00:39→23:35)
[2022-10-14] MEDS: LEVOTHYROXINE NA 75 MCG TABLET (FP) PO SCH (07:34)
[2022-10-14] MEDS: TAMSULOSIN HCL 0.4 MG CAP PO SCH (09:21)
[2022-10-14] MEDS: levETIRAcetam 500 MG/5 ML INJECTION VIAL IVPB SCH ×2 (10:06→21:46)
[2022-10-14] MEDS: clonazePAM 0.5 MG TABLET GT SCH (10:07)
[2022-10-14] MEDS: FINASTERIDE 5 MG TABLET (FP) PO SCH (10:07)
[2022-10-14] MEDS: MIDODRINE HCL 5 MG TABLET PO SCH ×3 (10:07→17:16)
[2022-10-14] MEDS: COLLAGENASE CLOSTRIDIUM HIST. 30 GRAMS TUBE TP SCH (14:57)
[2022-10-14] MEDS: SENNOSIDES 8.6MG TABLET (FP) PO SCH (21:40)
[2022-10-14] MEDS: MELATONIN 1 MG TABLET PO SCH (21:40)
[2022-10-15] MEDS: LEVOTHYROXINE NA 75 MCG TABLET (FP) PO SCH (06:24)
[2022-10-15] MEDS: TAMSULOSIN HCL 0.4 MG CAP PO SCH (08:44)
[2022-10-15] MEDS: VALPROATE SODIUM INJECTION 500 MG in SODIUM CHLORIDE 100 ML IVPB SCH ×2 (08:44→16:09)
[2022-10-15] MEDS: MIDODRINE HCL 5 MG TABLET PO SCH ×3 (09:45→18:45)
[2022-10-15] MEDS: clonazePAM 0.5 MG TABLET GT SCH (09:45)
[2022-10-15] MEDS: FINASTERIDE 5 MG TABLET (FP) PO SCH (09:45)
[2022-10-15] MEDS: levETIRAcetam 500 MG/5 ML INJECTION VIAL IVPB SCH ×2 (09:45→21:31)
[2022-10-15] MEDS: COLLAGENASE CLOSTRIDIUM HIST. 30 GRAMS TUBE TP SCH (14:05)
[2022-10-15] MEDS: SENNOSIDES 8.6MG TABLET (FP) PO SCH (21:31)
[2022-10-15] MEDS: MELATONIN 1 MG TABLET PO SCH (21:31)
[2022-10-16] MEDS: DIVALPROEX SODIUM 500 MG TABLET E.C. PO SCH ×2 (02:16→06:03)
[2022-10-16] MEDS: LEVOTHYROXINE NA 75 MCG TABLET (FP) PO SCH (06:03)
[2022-10-16] MEDS: TAMSULOSIN HCL 0.4 MG CAP PO SCH (08:23)
[2022-10-16] MEDS: FINASTERIDE 5 MG TABLET (FP) PO SCH (09:54)
[2022-10-16] MEDS: clonazePAM 0.5 MG TABLET GT SCH (09:54)
[2022-10-16] MEDS: MIDODRINE HCL 5 MG TABLET PO SCH (09:54)
[2022-10-16] MEDS: COLLAGENASE CLOSTRIDIUM HIST. 30 GRAMS TUBE TP SCH (09:55)
[2022-10-16] MEDS: levETIRAcetam 500 MG/5 ML INJECTION VIAL IVPB SCH (11:04)
[2022-10-16] MEDS ORDERED: levETIRAcetam 500 MG/5 ML ORAL SOLUTION (UNIT-DOSE CUPS) PO SCH (12:45)
[2022-10-16 12:48] VITALS: BP 124/64; PULSE 114; RESP 20; TEMP 98.3
== END 2022-10-16 11:55 | disposition home or self-care (01) | DRG 208 ==
LOC: JER 09:33 → JERBED 11:11 → JICU 13:05 → J7W 10-02 16:13
PROVIDERS: ADMIT Internal Medicine Pulmonary Disease
PROC: 0BH17EZ Insertion of Endotracheal Airway into Trachea, Via Natural or Artificial Opening (ICD-10-PCS; principal; 2022-09-29)
PROC: 5A1945Z Respiratory Ventilation, 24-96 Consecutive Hours (ICD-10-PCS; 2022-09-29)
PROC: 05H633Z Insertion of Infusion Device into Left Subclavian Vein, Percutaneous Approach (ICD-10-PCS; 2022-09-29)
PROC: B547ZZA Ultrasonography of Left Subclavian Vein, Guidance (ICD-10-PCS; 2022-09-29)
PROC: XW033E5 Introduction of Remdesivir Anti-infective into Peripheral Vein, Percutaneous Approach, New Technology Group 5 (ICD-10-PCS; 2022-09-30)
DX: U07.1 COVID-19 (principal); J12.82 Pneumonia due to coronavirus disease 2019; J96.21 Acute and chronic respiratory failure with hypoxia; J96.22 Acute and chronic respiratory failure with hypercapnia; E87.20 Acidosis, unspecified; E87.3 Alkalosis; R64 Cachexia; N39.0 Urinary tract infection, site not specified; B02.39 Other herpes zoster eye disease; K57.92 Diverticulitis of intestine, part unspecified, without perforation or abscess without bleeding; E03.9 Hypothyroidism, unspecified; G80.9 Cerebral palsy, unspecified; G40.909 Epilepsy, unspecified, not intractable, without status epilepticus; I12.9 Hypertensive chronic kidney disease with stage 1 through stage 4 chronic kidney disease, or unspecified chronic kidney disease; N18.9 Chronic kidney disease, unspecified; F31.9 Bipolar disorder, unspecified; E78.5 Hyperlipidemia, unspecified; D72.829 Elevated white blood cell count, unspecified; I45.10 Unspecified right bundle-branch block; Z68.23 Body mass index [BMI] 23.0-23.9, adult
CPT/HCPCS: 36415; 36600; 70450-TC; 71045-TC-FY; 74230-TC-FY; 80048; 80053; 80164; 80177; 81003; 82550; 82803; 82962; 83605; 83735; 84100; 84439; 84443; 84479; 84484; 85025; 85027; 85610; 85730; 87040; 87070; 87086; 87186; 87205; 92611-GN; 93005; 93010; 94002; 94640; 97116-GP; 97161-GP; 99285-25; C9399; C9803-CS; J1100; U0003; U0005